=== PATIENT | female | born 1940 ===

== ENCOUNTER → 2020-07-31 15:06 | Outpatient (CLI) | payer MEDICARE, SELFPAY ==
[2020-07-31 15:21] LABS: Hematocrit 39.7 % (37.0-47.0); Hemoglobin 12.2 g/dL (12.2-16.2); Mean Corpuscular HGB Conc 30.7 g/dL (31.8-35.4); Mean Corpuscular Hemoglobin 29.7 pg (27.0-31.2); Mean Corpuscular Volume 96.8 fl (81-99); Platelet Count 231 K/mm3 (142-424); Red Cell Distribution Width 16.4 % (11.5-17.5)
[2020-07-31 16:24] LABS: Chloride 105 mmol/L (98-107); Potassium 4.1 mmoL/L (3.5-5.1); Sodium 141 mmol/L (136-145)
[2020-07-31 16:26] LABS: Alanine Aminotransferase 15 U/L (12-78); Aspartate Amino Transferase 44 U/L (14-36); Blood Urea Nitrogen 19 mg/dl (7-17); Estimated Glomerular Filt Rate 69 ml/min (>60); GFR (African American) 84 ML/MIN (>60)
[2020-07-31 16:27] LABS: Albumin Level 3.8 g/dl (3.5-5.0); Albumin/Globulin Ratio 1.2 (1.1-1.8); Alkaline Phosphatase 169 U/L (38-126); Anion Gap 12.1 mEq/L (5-15); Bilirubin,Total 0.4 mg/dl (0.2-1.3); Calcium 9.4 mg/dl (8.4-10.2); Carbon Dioxide 28 mmol/L (22.0-30.0); Globulin 3.2 g/dL (1.3-3.2); Glucose 100 mg/dl (74-100)
[2020-07-31 16:33] LABS: C-Reactive Protein 3.8 mg/L (0-4)
[2020-07-31 16:37] LABS: Erythrocyte Sedimentation Rate 68 mm/hr (0-30)
== END ==
PROVIDERS: Visit Provider Internal Medicine Infectious Disease
DX: M00.052 Staphylococcal arthritis, left hip (principal)
CPT/HCPCS: 80053; 85014; 85018; 85048; 85049; 85651; 86140

== ENCOUNTER → 2020-08-07 15:42 | Outpatient (CLI) | payer MEDICARE, SELFPAY ==
[2020-08-07 16:36] LABS: Alanine Aminotransferase 15 U/L (12-78); Albumin Level 3.5 g/dl (3.5-5.0); Albumin/Globulin Ratio 1.1 (1.1-1.8); Alkaline Phosphatase 155 U/L (38-126); Anion Gap 9.4 mEq/L (5-15); Aspartate Amino Transferase 74 U/L (14-36); Bilirubin,Total 0.4 mg/dl (0.2-1.3); Blood Urea Nitrogen 16 mg/dl (7-17); Calcium 9.2 mg/dl (8.4-10.2); Carbon Dioxide 30 mmol/L (22.0-30.0); Chloride 103 mmol/L (98-107); Estimated Glomerular Filt Rate 97 ml/min (>60); GFR (African American) 117 ML/MIN (>60); Globulin 3.2 g/dL (1.3-3.2); Glucose 108 mg/dl (74-100); Potassium 3.4 mmoL/L (3.5-5.1); Sodium 139 mmol/L (136-145); Total Protein,Serum 6.7 g/dl (6.3-8.2)
[2020-08-07 16:41] LABS: C-Reactive Protein 11.1 mg/L (0-4)
[2020-08-07 17:05] LABS: Basophils % 0.7 % (0.1-2.0); Eosinophils # 0.3 K/mm3 (0.0-0.4); Eosinophils % 7.6 % (0.1-12.0); Hematocrit 36.7 % (37.0-47.0); Hemoglobin 11.3 g/dL (12.2-16.2); Lymphocytes # 1.2 K/mm3 (0.7-4.5); Lymphocytes % 30.5 % (10-50); Mean Corpuscular HGB Conc 30.8 g/dL (31.8-35.4); Mean Corpuscular Hemoglobin 29.2 pg (27.0-31.2); Mean Corpuscular Volume 94.7 fl (81-99); Mean Platelet Volume 9.5 fl (7.4-10.4); Monocytes # 0.2 K/mm3 (0.1-1.0); Monocytes % 6.1 % (1.7-9.3); Neutrophils # 2.2 K/mm3 (1.8-7.8); Neutrophils % 55.1 % (37.0-80.0); Platelet Count 278 K/mm3 (142-424); Red Blood Count 3.87 M/mm3 (4.20-5.40); Red Cell Distribution Width 15.9 % (11.5-17.5); White Blood Count 3.9 K/mm3 (4.8-10.8)
[2020-08-07 18:37] LABS: Erythrocyte Sedimentation Rate 40 mm/hr (0-30)
== END ==
PROVIDERS: Visit Provider Internal Medicine Infectious Disease
DX: M00.052 Staphylococcal arthritis, left hip (principal)
CPT/HCPCS: 80053; 85025; 85651; 86140